=== PATIENT | female | born 1975 | race Two or more races ===

== ENCOUNTER 2020-01-04 20:52 | Emergency (ER) | payer OTHER ==
[~2020-01-04] VITALS: Ht 165.1 cm; Wt 68.1 kg
[2020-01-04] MEDS ORDERED: IV NORMAL SALINE 1000 ML BAG IV ONE ×2 (21:00→21:45)
[2020-01-04 21:18] LABS: BASOPHILS % (AUTO) 0.3 % (0.0-2.0); EOSINOPHILS # (AUTO) 0.2 K/uL (0.0-0.7); EOSINOPHILS % (AUTO) 2.9 % (0.0-7.0); HEMATOCRIT 38.3 % (31.2-41.9); HEMOGLOBIN 13.1 g/dL (10.9-14.3); LYMPHOCYTES % (AUTO) 47.7 % (20.5-51.5); MEAN CORPUSCULAR HEMOGLOBIN 29.2 uug (24.7-32.8); MEAN CORPUSCULAR HGB CONC 34 g/dL (32.3-35.6); MEAN CORPUSCULAR VOLUME 85.8 fL (75.5-95.3); MONOCYTES # (AUTO) 0.5 K/uL (2.0-10.0); MONOCYTES % (AUTO) 8.1 % (0.0-11.0); NEUTROPHILS # (AUTO) 2.5 K/uL (1.8-8.9); PLATELET COUNT (AUTO) 303 K/uL (179-408); RED BLOOD CELL COUNT(AUTO) 4.47 MIL/uL (3.63-4.92); WHITE BLOOD COUNT (AUTO) 6.2 K/uL (3.8-11.8)
[2020-01-04 21:34] LABS: CREATININE 0.8 mg/dL (0.6-1.3); POTASSIUM 2.9 mmol/L (3.5-5.1)
[2020-01-04 21:39] LABS: BILIRUBIN,DIRECT 0.2 mg/dL (0.0-0.2); BILIRUBIN,TOTAL 0.8 mg/dL (0.2-1.0); TOTAL PROTEIN, SERUM 7.2 g/dL (6.4-8.2)
[2020-01-04] MEDS ORDERED: POTASSIUM CHLORIDE 20 MEQ TAB.PRT.SR PO ONE (21:45)
[2020-01-04] MEDS ORDERED: POTASSIUM CHLORIDE 20 MEQ TAB.PRT.SR ONE ×2 (21:50→21:53)
--- NOTE | 2020-01-04 23:30 | NUR ---
IV removed. Catheter intact and site benign. Pressure and 4x4 gauze applied to site. No bleeding noted.
--- NOTE | 2020-01-04 23:34 | NUR ---
Patient discharged to home in stable condition. Written and verbal after care instructions given. Patient verbalizes understanding of instructions. Stressed follow up or return to ER for worsening s/s.
[2020-01-04 23:36] VITALS: BP 101/61
== END 2020-01-04 23:38 | disposition home or self-care (01) ==
LOC: ER 20:55
DX: E87.6 Hypokalemia (principal); R00.0 Tachycardia, unspecified; R53.1 Weakness
CPT/HCPCS: 36415; 70030-TC; 71045; 83690; 84443; 85025; 93005; A4663; J7030

== ENCOUNTER 2020-02-06 22:17 | Emergency (ER) | payer OTHER ==
[~2020-02-06] VITALS: Ht 165.1 cm; Wt 68.1 kg
--- NOTE | 2020-02-06 22:42 | NUR ---
Pt ambulated to ER in steady gait. AOx4. She brought herself in for, "feeling of bloating" and pointed at the mid epigastric area. According to her she also has abdominal pain, but it is worse only after eating, at this time pain is about 2-4/10. Respirations are even and unlabored. No signs of distress. Bed locked x 2. Side rails up x 1. Will continue to monitor.
[2020-02-06] MEDS ORDERED: PANTOPRAZOLE SODIUM 40 MG TABLET.DR PO ONE ×2 (23:15→23:16)
[2020-02-06] MEDS ORDERED: LIDOCAINE VISCUS 2% 15 ML UDC MM ONE (23:15)
[2020-02-06] MEDS ORDERED: MAGNESIUM HYDROXIDE 30 ML LIQUID UDC ONE (23:15)
[2020-02-06] MEDS ORDERED: MAG HYDROX/AL HYDROX/SIMETH 30 ML LIQUID UDC PO ONE (23:15)
[2020-02-06] MEDS ORDERED: LIDOCAINE VISCUS 2% 15 ML UDC ONE (23:15)
[2020-02-06 23:18] LABS: *URINE HCG, QUAL NEGATIVE (NEGATIVE)
--- NOTE | 2020-02-06 23:38 | NUR ---
Patient states "I feel better now."
[2020-02-06 23:45] VITALS: BP 128/85
== END 2020-02-06 23:45 | disposition home or self-care (01) ==
LOC: ER 22:20
DX: K29.70 Gastritis, unspecified, without bleeding (principal); R03.0 Elevated blood-pressure reading, without diagnosis of hypertension
CPT/HCPCS: 84703; A4663

== ENCOUNTER 2020-03-28 00:11 | Emergency (ER) | payer OTHER ==
[~2020-03-28] VITALS: Ht 157.5 cm; Wt 63.5 kg
--- NOTE | 2020-03-28 00:26 | NUR ---
DR. NAGEL AT BEDSIDE FOR MSE.
[2020-03-28] MEDS ORDERED: ASPIRIN 325 MG TABLET ONE (00:42)
[2020-03-28] MEDS ORDERED: ASPIRIN 325 MG TABLET PO ONE (00:45)
[2020-03-28 00:51] LABS: BASOPHILS % (AUTO) 0.2 % (0.0-2.0); EOSINOPHILS # (AUTO) 0.2 K/uL (0.0-0.7); EOSINOPHILS % (AUTO) 3.4 % (0.0-7.0); HEMATOCRIT 36.1 % (31.2-41.9); HEMOGLOBIN 12.4 g/dL (10.9-14.3); LYMPHOCYTES # (AUTO) 2.1 K/uL (20.0-40.0); LYMPHOCYTES % (AUTO) 32.9 % (20.5-51.5); MEAN CORPUSCULAR HEMOGLOBIN 29.7 uug (24.7-32.8); MEAN CORPUSCULAR HGB CONC 34 g/dL (32.3-35.6); MEAN CORPUSCULAR VOLUME 86.6 fL (75.5-95.3); MONOCYTES # (AUTO) 0.5 K/uL (2.0-10.0); NEUTROPHILS # (AUTO) 3.6 K/uL (1.8-8.9); NEUTROPHILS % (AUTO) 55.5 % (38.5-71.5); PLATELET COUNT (AUTO) 271 K/uL (179-408); RED BLOOD CELL COUNT(AUTO) 4.17 MIL/uL (3.63-4.92); WHITE BLOOD COUNT (AUTO) 6.5 K/uL (3.8-11.8)
[2020-03-28 00:53] LABS: CREATININE 0.8 mg/dL (0.6-1.3); POTASSIUM 3.7 mmol/L (3.5-5.1)
[2020-03-28 00:58] LABS: BILIRUBIN,DIRECT 0.1 mg/dL (0.0-0.2); BILIRUBIN,TOTAL 0.5 mg/dL (0.2-1.0); TOTAL PROTEIN, SERUM 6.9 g/dL (6.4-8.2)
[2020-03-28 01:24] LABS: *URINE HCG, QUAL NEGATIVE (NEGATIVE)
[2020-03-28 03:07] VITALS: BP 135/57
== END 2020-03-28 03:07 | disposition home or self-care (01) ==
LOC: ER 00:15
DX: R07.2 Precordial pain (principal); Z82.49 Family history of ischemic heart disease and other diseases of the circulatory system
CPT/HCPCS: 36415; 70030-TC; 71045; 84703; 85025; 93005; A4663